=== PATIENT | female | born 1990 | race Caucasian/White ===

== ENCOUNTER → 2017-08-17 | Outpatient (CLI) | payer BC ==
--- NOTE | 2017-08-17 08:44 | US ---
EXAMINATION TYPE: US abdomen complete DATE OF EXAM: 08/17/2017 COMPARISON: NONE CLINICAL HISTORY: 27-year-old female R10.9 Abd Pain; Generalized abd. pain with food allergies being dairy, corn, eggs; GERD per patient TECHNIQUE: Multiple sonographic images of the abdomen are obtained. FINDINGS:: Liver Length: 16.7 cm Gallbladder Wall: 0.1 cm CBD: 0.3 cm Spleen: 8.2 cm Right Kidney: 10.3 x 4.7 x 3.5 cm Left Kidney: 11.4 x 4.3 x 5.3 cm Pancreas: wnl Liver: Homogeneous echotexture without focal lesion. Gallbladder: wnl Evidence for sonographic Zeng's sign: No CBD: wnl Spleen: wnl Right Kidney: No hydronephrosis. Left Kidney: No hydronephrosis. Mid abdominal IVC: wnl Abd Aorta: wnl IMPRESSION: Unremarkable sonographic examination of the abdomen.
== END | disposition home or self-care (01) ==
LOC: RADUSWWP 07:10
PROVIDERS: ATTEND Family Medicine
DX: R10.9 Unspecified abdominal pain (principal)
CPT/HCPCS: 76700